=== PATIENT | female | born 2000 | race Caucasian/White ===

== ENCOUNTER 2019-02-02 08:28 | Emergency (ER) | payer SELFPAY ==
--- NOTE | 2019-02-02 09:56 | ER ---
Nurse's Notes [facility] Name: Dwaine Grijalva Age: 18 yrs Sex: Female : 2000 Arrival Date: 02/02/2019 Time: 08:32 Bed 15 Private MD: Diagnosis: Acute laryngitis Presentation: 02/02 08:41 Presenting complaint: Patient states: cough, sore throat, and hoarse voice that began 3 aa5 days ago. 08:41 Transition of care: patient was not received from another setting of care. Onset of aa5 symptoms was January 2019. Risk Assessment: Do you want to hurt yourself or someone else? Patient reports no desire to harm self or others. Initial Sepsis Screen: Does the patient meet any 2 criteria? No. Patient's initial sepsis screen is negative. Does the patient have a suspected source of infection? No. Patient's initial sepsis screen is negative. Care prior to arrival: None. 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 - Social history:: Smoking status: Patient uses tobacco products, smokes one-half pack cigarettes per day. - Ebola Screening: : No symptoms or risks identified at this time. - Family history:: not pertinent. - Hospitalizations: : No recent hospitalization is reported. Screenin:45 Abuse screen: Denies threats or abuse. Nutritional screening: No deficits noted. aa5 Tuberculosis screening: No symptoms or risk factors identified. Fall Risk None identified. Assessment: 08:45 General: Appears comfortable, Behavior is calm, cooperative. Pain: Denies pain. Neuro: aa5 Level of Consciousness is awake, alert, obeys commands, Oriented to person, place, time, situation. Cardiovascular: Heart tones S1 S2 present Capillary refill < 3 seconds is brisk in bilateral fingers Rhythm is regular. Respiratory: Reports cough Airway is patent Respiratory effort is even, unlabored, Respiratory pattern is regular, symmetrical, Breath sounds are clear bilaterally. GI: No signs and/or symptoms were reported involving the gastrointestinal system. : No signs and/or symptoms were reported regarding the genitourinary system. EENT: Throat is reddened Reports sore throat . Derm: Skin is pink, warm \T\ dry. Musculoskeletal: Range of motion: intact in all extremities. 09:55 Reassessment: Patient is alert, oriented x 3, equal unlabored respirations, skin aa5 warm/dry/pink. Vital Signs: 08:45 BP 107 / 48; Pulse 68; Resp 16 S; Temp 98.5(O); Pulse Ox 97% on R/A; Pain 0/10; aa5 09:55 BP 101 / 60; Pulse 70; Resp 18 S; Pulse Ox 99% on R/A; aa5 ED Course: 08:32 Patient arrived in ED. mr 08:40 Tyler Pepe MD is Attending Physician. rn 08:41 Arm band placed on. aa5 08:41 Patient has correct armband on for positive identification. Bed in low position. Call aa5 light in reach. Side rails up X 1. Adult w/ patient. 08:42 Brenda Rome, RN is Primary Nurse. aa5 09:05 Flu and/or RSV swab sent to lab. Strep swab sent to lab. aa5 09:09 Triage completed. aa5 09:15 No provider procedures requiring assistance completed. aa5 09:55 Patient did not have IV access during this emergency room visit. aa5 Administered Medications: No medications were administered Outcome: 09:55 Discharge ordered by . rn 09:58 Discharged to home ambulatory, with family. aa5 09:58 Condition: stable 09:58 Discharge instructions given to patient, Instructed on discharge instructions, follow up and referral plans. Demonstrated understanding of instructions, follow-up care. 10:00 Patient left the ED. aa5 Signatures: Sha Lucinda jaramillo Tyler Pepe MD MD rn Calderon, Audri, RN RN aa5
--- NOTE | 2019-02-02 09:56 | EDPHYS ---
Physician Documentation [facility] Name: wDaine Grijalva Age: 18 yrs Sex: Female : 2000 Arrival Date: 02/02/2019 Time: 08:32 Bed 15 Private MD: ED Physician Tyler Pepe HPI: 02/02 09:17 This 18 yrs old Female presents to ER via Ambulatory with complaints of rn Congestion, Sore Throat. 09:17 The patient presents with sore throat. The patient describes throat pain as raw. Onset: rn The symptoms/episode began/occurred 3 day(s) ago. Severity of symptoms: At their worst the symptoms were moderate, in the emergency department the symptoms are unchanged. Modifying factors: The symptoms are alleviated by nothing, the symptoms are aggravated by swallowing, Patient's oral intake status: good. The patient has not experienced similar symptoms in the past. Reports similar infection spreading through house, they are getting over it and now she has sore throat/losing voice, congestion. + cough. . + smoker.. 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 - Social history:: Smoking status: Patient uses tobacco products, smokes one-half pack cigarettes per day. - Ebola Screening: : No symptoms or risks identified at this time. - Family history:: not pertinent. - Hospitalizations: : No recent hospitalization is reported. ROS: 09:17 Constitutional: Negative for fever, chills, and weight loss, Eyes: Negative for injury, rn pain, redness, and discharge, ENT: + congestion and sore throat Cardiovascular: Negative for chest pain, palpitations, and edema, Respiratory: Negative for shortness of breath, wheezing, and pleuritic chest pain, Abdomen/GI: Negative for abdominal pain, nausea, vomiting, diarrhea, and constipation, MS/Extremity: Negative for injury and deformity, Skin: Negative for injury, rash, and discoloration, Neuro: Negative for headache, weakness, numbness, tingling, and seizure. Exam: 09:17 Constitutional: This is a well developed, well nourished patient who is awake, alert rn Head/Face: Normocephalic, atraumatic. Eyes: Pupils equal round and reactive to light, extra-ocular motions intact. Lids and lashes normal. Conjunctiva and sclera are non-icteric and not injected. Cornea within normal limits. Periorbital areas with no swelling, redness, or edema. ENT: + mild tonsillar swelling, no exudate, no stridor, no oral lesions, MMM Neck: Trachea midline, no thyromegaly or masses palpated, and no cervical lymphadenopathy. Supple, full range of motion without nuchal rigidity, or vertebral point tenderness. No Meningismus. Respiratory: No increased work of breathing, no retractions or nasal flaring. Skin: Warm, dry with normal turgor. Normal color with no rashes, no lesions, and no evidence of cellulitis. MS/ Extremity: Pulses equal, no cyanosis. Neurovascular intact. Full, normal range of motion. Equal circumference. Neuro: Awake and alert, GCS 15, oriented to person, place, time, and situation. Cranial nerves II-XII grossly intact. Motor strength 5/5 in all extremities. Sensory grossly intact. Cerebellar exam normal. Normal gait. Vital Signs: 08:45 BP 107 / 48; Pulse 68; Resp 16 S; Temp 98.5(O); Pulse Ox 97% on R/A; Pain 0/10; aa5 09:55 BP 101 / 60; Pulse 70; Resp 18 S; Pulse Ox 99% on R/A; aa5 MDM: 08:40 Patient medically screened. rn 09:34 Differential diagnosis: group A strep tonsillitis, influenza, laryngitis, pharyngitis, rn tonsillitis. Data reviewed: vital signs, nurses notes, lab test result(s), and as a result, I will discharge patient. Counseling: I had a detailed discussion with the patient and/or guardian regarding: the historical points, exam findings, and any diagnostic results supporting the discharge/admit diagnosis, lab results, the need for outpatient follow up, to return to the emergency department if symptoms worsen or persist or if there are any questions or concerns that arise at home. Counseling: I had a detailed discussion with the patient and/or guardian regarding: smoking cessation. Special discussion: I discussed with the patient/guardian in detail that at this point there is no indication for admission to the hospital. It is understood, however, that if the symptoms persist or worsen the patient needs to return immediately for re-evaluation. 02/02 08:52 Order name: Strep; Complete Time: 09:34 rn 02/02 09:54 Interpretation: Within normal limits. rn 02/02 08:52 Order name: Flu; Complete Time: 09:54 rn 02/02 09:54 Interpretation: Within normal limits. rn 02/02 09:22 Order name: Throat Culture EDMS Administered Medications: No medications were administered Disposition: 02/02/19 09:55 Discharged to Home. Impression: Acute laryngitis. - Condition is Stable. - Discharge Instructions: Laryngitis, Viral Respiratory Infection. - Medication Reconciliation Form, Thank You Letter, Antibiotic Education, Prescription Opioid Use form. - Follow up: Private Physician; When: As needed; Reason: Recheck today's complaints, Re-evaluation by your physician. - Problem is new. - Symptoms are unchanged. Signatures: Dispatcher [employer] EDMS Tyler Pepe MD MD rn Calderon, Audri, RN RN aa5 Corrections: (The following items were deleted from the chart) 10:00 09:55 02/02/2019 09:55 Discharged to Home. Impression: Acute laryngitis. Condition is aa5 Stable. Discharge Instructions: Laryngitis, Viral Respiratory Infection. Forms are Medication Reconciliation Form, Thank You Letter, Antibiotic Education, Prescription Opioid Use. Follow up: Private Physician; When: As needed; Reason: Recheck today's complaints, Re-evaluation by your physician. Problem is new. Symptoms are unchanged. rn
== END 2019-02-02 10:00 | disposition home or self-care (01) ==
LOC: ER 08:28
DX: J04.0 Acute laryngitis (principal); F17.210 Nicotine dependence, cigarettes, uncomplicated
CPT/HCPCS: 87070; 87081; 87804; 99283